=== PATIENT | male | born 1970 | race Asian ===

== ENCOUNTER 2022-05-15 07:02 | Day surgery (SDC) | payer BC ==
[~2022-05-15] VITALS: Ht 165.1 cm; Wt 81.2 kg
[2022-05-15] MEDS ORDERED: SIMETHICONE 40 MG/0.6 ML ML ONE (07:23)
[2022-05-15] MEDS: fentaNYL CITRATE/PF 100 MCG/2 ML AMP ONE ×2 (09:17→09:19)
[2022-05-15] MEDS: MIDAZOLAM HCL 5 MG/5 ML VIAL ONE ×2 (09:17→09:19)
[2022-05-16 07:32] VITALS: BP_SYST 138
== END 2022-05-15 13:09 | disposition home or self-care (01) ==
LOC: SDS 07:02 → SMU 07:41 → SDS 13:09
PROVIDERS: ATTEND Internal Medicine
DX: Z12.11 Encounter for screening for malignant neoplasm of colon (principal); K64.8 Other hemorrhoids; I10 Essential (primary) hypertension; E78.5 Hyperlipidemia, unspecified; Z20.822 Contact with and (suspected) exposure to COVID-19
CPT/HCPCS: 45378; 87426; 36415; 99152; G0378; J2250; J3010